=== PATIENT | female | born 1980 | race Two or more races ===

== ENCOUNTER 2021-07-10 17:41 | Emergency (ER) | payer MEDICAID ==
[~2021-07-10] VITALS: Ht 160 cm; Wt 118.2 kg
[~2021-07-10 17:41] MED LIST: CHLO25CA10 PO; HYDR-4383 PO; IBUP-1986 PO; PROC25SU30 PO
[2021-07-10 17:59] VITALS: BP 132/81
[2021-07-10] MEDS ORDERED: DIPH25CA83 PO (18:08)
[2021-07-10] MEDS ORDERED: PRED20TA PO (18:08)
== END 2021-07-10 18:04 | disposition home or self-care (01) ==
LOC: ER 17:42
DX: L29.9 Pruritus, unspecified (principal); R21 Rash and other nonspecific skin eruption; F12.90 Cannabis use, unspecified, uncomplicated; F15.90 Other stimulant use, unspecified, uncomplicated; Z87.440 Personal history of urinary (tract) infections; Z86.14 Personal history of Methicillin resistant Staphylococcus aureus infection; Z98.890 Other specified postprocedural states; Z72.89 Other problems related to lifestyle; Z60.2 Problems related to living alone; Z79.899 Other long term (current) drug therapy
CPT/HCPCS: 99283

== ENCOUNTER 2021-07-22 11:14 | Emergency (ER) | payer MEDICAID ==
[~2021-07-22] VITALS: Ht 160 cm; Wt 120.5 kg
[~2021-07-22 11:14] MED LIST changes: +DIPH25CA83 PO
[2021-07-22 11:42] VITALS: BP 109/80
[2021-07-22 12:32] LABS: BASOPHILS # (AUTO) 0.1 X10'3 (0-0.2); BASOPHILS % (AUTO) 0.8 % (0-1); EOSINOPHILS # (AUTO) 0.4 X10'3 (0-0.9); EOSINOPHILS % (AUTO) 5.3 % (0-6); HEMATOCRIT 40.5 % (35.0-45.0); HEMOGLOBIN 13.4 g/dl (12.0-16.0); LYMPHOCYTES # (AUTO) 2.3 X10'3 (1.1-4.8); LYMPHOCYTES % (AUTO) 30.4 % (21-51); MEAN CORPUSCULAR HEMOGLOBIN 30.1 PG (27.0-31.0); MEAN CORPUSCULAR VOLUME 91.4 FL (78-98); MEAN PLATELET VOLUME 8.2 FL (7.4-10.4); MONOCYTES # (AUTO) 0.7 X10'3 (0-0.9); MONOCYTES % (AUTO) 9.1 % (2-12); NEUTROPHILS # (AUTO) 4.1 X10'3 (1.8-7.7); NEUTROPHILS % (AUTO) 54.4 % (42-75); PLATELET COUNT 355 X10'3 (140-440); RED BLOOD COUNT 4.43 X10'6 (4.20-5.60); RED CELL DISTRIBUTION WIDTH 13.1 % (11.5-14.5); WHITE BLOOD COUNT 7.4 X10'3 (4.5-11.0)
[2021-07-22 12:36] LABS: ALANINE AMINOTRANSFERASE 85 U/L (12-78); ALBUMIN 3.1 G/DL (3.4-5.0); ALBUMIN/GLOBULIN RATIO 0.8 (1.1-1.5); ALKALINE PHOSPHATASE 87 IU/L (46-116); ANION GAP 9 (8-16); ASPARTATE AMINO TRANSFERASE 56 U/L (10-37); BILIRUBIN,TOTAL 0.1 MG/DL (0.1-1.0); BLOOD UREA NITROGEN 10 MG/DL (7-18); BUN/CREATININE RATIO 13.2 (6.6-38.0); CALCIUM 8.5 MG/DL (8.5-10.1); CHLORIDE 108 MMOL/L (99-107); CREATININE 0.76 MG/DL (0.40-0.90); GLUCOSE 106 MG/DL (70-104); SODIUM 142 MMOL/L (135-145); TOTAL CARBON DIOXIDE 24.6 MMOL/L (24-32); TOTAL PROTEIN 7.1 G/DL (6.4-8.2); eGFR 83 ML/MIN
[2021-07-22 12:37] LABS: POTASSIUM 4.1 MMOL/L (3.5-5.1)
[2021-07-22] MEDS ORDERED: CEPH-585 PO (15:24)
== END 2021-07-22 15:37 | disposition home or self-care (01) ==
LOC: ER 11:14
DX: L03.116 Cellulitis of left lower limb (principal); F12.90 Cannabis use, unspecified, uncomplicated; F15.90 Other stimulant use, unspecified, uncomplicated; Z87.440 Personal history of urinary (tract) infections; Z86.14 Personal history of Methicillin resistant Staphylococcus aureus infection; Z72.89 Other problems related to lifestyle; Z60.2 Problems related to living alone; Z79.2 Long term (current) use of antibiotics; Z79.899 Other long term (current) drug therapy
CPT/HCPCS: 36415; 80053; 85025; 93971; 99284

== ENCOUNTER 2023-11-16 09:42 | Emergency (ER) | payer MEDICAID ==
[~2023-11-16] VITALS: Ht 162.6 cm; Wt 113.6 kg
[2023-11-16 10:11] VITALS: BP 135/83; PULSE 88; RESP 18; TEMP 97.8; O2SAT 98
[2023-11-16] MEDS ORDERED: ketorolac trometh. 30mg/ml inj. IM ONE (10:15)
[2023-11-16] MEDS ORDERED: NAPR-56 PO (10:23)
[2023-11-16] MEDS ORDERED: CYCL-1 PO (10:23)
== END 2023-11-16 10:46 | disposition home or self-care (01) ==
LOC: ER 09:43
DX: G89.29 Other chronic pain (principal); M54.59 Other low back pain; F19.10 Other psychoactive substance abuse, uncomplicated; F17.200 Nicotine dependence, unspecified, uncomplicated; F12.10 Cannabis abuse, uncomplicated; F15.10 Other stimulant abuse, uncomplicated; Z79.899 Other long term (current) drug therapy
CPT/HCPCS: 96372; 99283; J1885

== ENCOUNTER 2025-07-25 15:10 | Emergency (ER) | payer MEDICAID ==
[~2025-07-25] VITALS: Ht 157.5 cm; Wt 115.3 kg
[~2025-07-25 15:10] MED LIST changes: +CYCL-1 PO
[2025-07-25 15:36] VITALS: BP 123/82; PULSE 90; RESP 16; TEMP 97.5; O2SAT 98
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
--- NOTE | 2025-07-25 16:15 | RADIOLOGY REPORT ---
CLINICAL INDICATION: Left Ankle pain TECHNIQUE: 3 radiographic views of the ankle were obtained. Comparison: None FINDINGS/IMPRESSION: There is no evidence of acute fracture or dislocation. Old fracture deformity of the distal tibia and fibula. Plate and screw fixation of the distal fibula with partial fusion of the distal tibia and fibula. Surgical clips are noted within the soft tissues of the distal lower leg. Nonspecific soft tissue calcification within the lateral distal lower leg.
[2025-07-25] MEDS ORDERED: walking boot (16:53)
== END 2025-07-25 17:13 | disposition home or self-care (01) ==
LOC: ER 15:11
DX: S93.492A Sprain of other ligament of left ankle, initial encounter (principal); F12.90 Cannabis use, unspecified, uncomplicated; F15.90 Other stimulant use, unspecified, uncomplicated; F19.90 Other psychoactive substance use, unspecified, uncomplicated; F10.90 Alcohol use, unspecified, uncomplicated; Y90.9 Presence of alcohol in blood, level not specified; Z87.440 Personal history of urinary (tract) infections; Z86.14 Personal history of Methicillin resistant Staphylococcus aureus infection; Z60.2 Problems related to living alone; X58.XXXA Exposure to other specified factors, initial encounter; Y93.89 Activity, other specified; Y92.89 Other specified places as the place of occurrence of the external cause; Y99.8 Other external cause status
CPT/HCPCS: 73610; 99283